=== PATIENT | female | born 1970 | race Caucasian/White ===

== ENCOUNTER 2016-12-18 12:41 | Emergency (ER) | payer BC ==
[2016-12-18 13:03] VITALS: BP 115/74
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
== END 2016-12-18 15:15 | disposition home or self-care (01) ==
LOC: DL.ED 12:41
DX: S50.12XA Contusion of left forearm, initial encounter (principal); Z88.5 Allergy status to narcotic agent; W28.XXXA Contact with powered lawn mower, initial encounter
CPT/HCPCS: 73090-LT; 99283